=== PATIENT | female | born 2000 | race Caucasian/White ===

== ENCOUNTER → 2025-03-01 11:04 | Outpatient (BNVA) | payer OTHER, SELFPAY | PROVIDERS: Visit Provider Internal Medicine | DX: S60.471A Other superficial bite of left index finger, initial encounter (principal); W50.3XXA Accidental bite by another person, initial encounter | CPT/HCPCS: 99202 ==

== ENCOUNTER → 2025-03-04 09:22 | Outpatient (BNVA) | payer OTHER, SELFPAY | PROVIDERS: Visit Provider Emergency Medicine | DX: S60.471A Other superficial bite of left index finger, initial encounter (principal); W50.3XXA Accidental bite by another person, initial encounter; Z02.79 Encounter for issue of other medical certificate | CPT/HCPCS: 99213 ==